=== PATIENT | female | born 1985 | race Caucasian/White ===

== ENCOUNTER 2017-12-26 14:42 | Emergency (ER) | payer SELFPAY ==
--- NOTE | 2017-12-26 15:50 | RAD REPORT ---
EXAM DESCRIPTION: CT - Head Brain Wo Cont - 12/26/2017 3:44 pm CLINICAL HISTORY: numbness right hand;Headache TIA/CVA COMPARISON: CT-STROKE BRAIN W/O CONTRAST dated 05/13/2014 TECHNIQUE: All CT scans are performed using dose optimization technique as appropriate and may inclu de automated exposure control or mA/KV adjustment according to patient size. FINDINGS: No intracranial hemorrhage, hydrocephalus or extra-axial fluid collection.No areas of brai n edema or evidence of midline shift. The paranasal sinuses and mastoids are clear. The calvarium is intact. IMPRESSION: No acute intracranial abnormality.
[2017-12-26 15:54] LABS: Absolute Lymphocytes (CBC) 1.4 K/uL (0.7-4.9); Absolute Monocytes 0.5 K/uL (0.1-1.3); Absolute Neutrophil 3.1 K/uL (1.8-8.0); Basophils % 0.8 % (0-1.3); Eosinophils % 0.8 % (0-4.4); Hematocrit 38.3 % (36.0-45.0); Lymphocytes % 27.6 % (15.3-44.8); MCH 30.1 pg (27.0-35.0); MCV 87.6 fL (80-100); MPV 8.3 fL (7.6-11.3); Monocytes % 10.6 % (3.3-12.3); RBC Red Blood Cell Count 4.37 M/uL (3.86-4.86)
[2017-12-26 15:58] LABS: Protime INR 1.01
[2017-12-26 16:01] LABS: Urine Blood 1+ (NEG); Urine Glucose NEGATIVE (NEG); Urine Protein NEGATIVE (NEG)
[2017-12-26] MEDS ORDERED: ONDANSETRON 4 MG/2 ML VIAL ONE (16:14)
[2017-12-26] MEDS ORDERED: METOCLOPRAMIDE 10 MG/2mL INJ ONE (16:14)
[2017-12-26] MEDS ORDERED: NA CHLORIDE 0.9% 1,000 ML ONE (16:14)
[2017-12-26] MEDS ORDERED: DEXAMETHASONE 4 MG/ML VIAL ONE (16:14)
[2017-12-26 16:15] LABS: ALT/SGPT 17 U/L (12-78); AST/SGOT 15 U/L (15-37); Alkaline Phosphatase 49 U/L (45-117); BUN Blood Urea Nitrogen 10 mg/dL (7-18); Bicarbonate 29 mmol/L (21-32); Bilirubin Direct < 0.1 mg/dL (0-0.2); Bilirubin Total 0.2 mg/dL (0.2-1.0); CKMB Creatine Kinase MB 2.5 ng/mL (0.3-3.6); Creatine Phosphokinase 143 U/L (26-192); Glucose Level 80 mg/dL (74-106); Magnesium 2.5 mg/dL (1.8-2.4); NT PRO-BNP 26 pg/mL (<125); Potassium 3.4 mmol/L (3.5-5.1); Protein, Total 7.7 g/dL (6.4-8.2); Sodium Level 141 mmol/L (136-145)
[2017-12-26] MEDS ORDERED: DIPHENHYDRAMINE 50 MG/ML VIAL ONE (16:19)
--- NOTE | 2017-12-26 16:26 | EKG ---
Test Date: 2017-12-26 Test Time: 15:34:15 Assurance Analyst: OSVALDO MEASUREMENT RESULTS: Intervals: Rate: 81 WY: 148 QRSD: 94 QT: 394 QTc: 457 Taylor: P: 28 WY: 148 QRS: 28 T: 17 INTERPRETIVE STATEMENTS: Normal sinus rhythm Normal ECG No previous ECG available for comparison Electronically Signed On 12-26-17 16:25:45 CDT by Henry Sands
--- NOTE | 2017-12-26 16:31 | RAD REPORT ---
EXAM DESCRIPTION: Rosa Elena Single View12/26/2017 4:22 pm CLINICAL HISTORY: Chest pain COMPARISON: none FINDINGS: The lungs appear clear of acute infiltrate. The heart is normal size IMPRESSION: No acute abnormalities displayed
[2017-12-26] MEDS ORDERED: POTASSIUM 25 MEQ EFFERV TAB ONE (16:36)
--- NOTE | 2017-12-26 17:47 | RAD REPORT ---
EXAM DESCRIPTION: MRI - Brain Wo Cont - 12/26/2017 5:30 pm CLINICAL HISTORY: numbness right hand;Headache CVA COMPARISON: Head Brain Wo Cont dated 12/26/2017 TECHNIQUE: Multi-sequence, multiplanar MR imaging of the brain was performed without contrast. FINDINGS: No intracranial hemorrhage, hydrocephalus or extra-axial fluid collections. No edema or sh ift of midline structures. No findings to suspect brain mass. DWI is negative for acute CVA. Thin curvilinear T1 hyperintense lesion surrounding the splenium of the corpus callosum is likely a s mall pericallosal lipoma. Mastoid air cells and paranasal sinuses are clear. IMPRESSION: Negative for acute CVA or other acute intracranial abnormality. Small benign pericallosal lipoma.
--- NOTE | 2017-12-26 18:11 | ER ---
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 A few minutes later she was having trouble speaking. States she was checked out by safety, and her automotive assembler were equal, but was having numbness and tingling. States she is still having some numbness and tingling in her fingertips, but her symptoms have otherwise resolved. Speech is clear, automotive assembler are equal bilaterally, patient ambulated back to triage with a steady gait. Patient states that in 2014 she had weakness on the entire right side of her body and difficulty speaking and was transferred to [place], had an MRI which was negative and was told that her symptoms at that time were likely due to complex migrane. Transition of care: patient was not received from another setting of care. Onset of symptoms was December 26, 2017 at 12:10. Risk Assessment: Do you want to hurt yourself or someone else? Patient reports no desire to harm self or others. Initial Sepsis Screen: Does the patient meet any 2 criteria? No. Patient's initial sepsis screen is negative. Does the patient have a suspected source of infection? No. Patient's initial sepsis screen is negative. Care prior to arrival: None. 15:00 Method Of Arrival: Ambulatory aj1 15:00 Acuity: MOSES 3 aj1 Triage Assessment: 15:07 General: Appears in no apparent distress. comfortable, Behavior is calm, cooperative, aj1 appropriate for age. Pain: Complains of pain in right moravian and left moravian Pain does not radiate. Pain currently is 6 out of 10 on a pain scale. Quality of pain is described as throbbing. Neuro: Level of Consciousness is awake, alert, obeys commands, Oriented to person, place, time, situation, Microbiology Instructor are equal bilaterally Moves all extremities. Full function Gait is steady, Speech is normal, Facial symmetry appears normal, Pupils are PERRLA, Reports headache weakness. Cardiovascular: Patient's skin is warm and dry. Respiratory: Airway is patent Respiratory effort is even, unlabored, Respiratory pattern is regular, symmetrical. 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 - Social history:: Smoking status: Patient uses tobacco products, smokes one-half pack cigarettes per day. - Ebola Screening: : Patient denies travel to an Ebola-affected area in the 21 days before illness onset. Screenin:44 Abuse screen: Denies threats or abuse. Denies injuries from another. Nutritional kr2 screening: No deficits noted. Tuberculosis screening: No symptoms or risk factors identified. Fall Risk None identified. Assessment: 15:41 General: Appears in no apparent distress. uncomfortable, well groomed, well developed, kr2 well nourished, Behavior is calm, cooperative, appropriate for age. Pain: Complains of pain in left moravian and right moravian Pain does not radiate. Pain currently is 6 out of 10 on a pain scale. Quality of pain is described as aching, Is continuous, Alleviated by nothing. Aggravated by increased activity. Neuro: Level of Consciousness is awake, alert, obeys commands, Oriented to person, place, time, situation, Appropriate for age Microbiology Instructor are equal bilaterally Moves all extremities. Gait is steady, Speech is normal, Facial symmetry appears normal, Pupils are PERRLA, Numbness in right arm Reports numbness in right arm since 1220. Cardiovascular: Heart tones S1 S2 Capillary refill < 3 seconds in bilateral fingers Patient's skin is warm and dry. Pulses are all present. Respiratory: Airway is patent Respiratory effort is even, unlabored, Respiratory pattern is regular, symmetrical. GI: Abdomen is flat, non-distended, Patient currently denies nausea, vomiting. : Urine is clear. EENT: Oral mucosa is moist. Derm: Skin is intact, is healthy with good turgor, Skin is pink, warm \T\ dry. 17:06 Reassessment: Patient appears in no apparent distress at this time. Patient and/or kr2 family updated on plan of care and expected duration. Pain level reassessed. Patient is alert, oriented x 3, equal unlabored respirations, skin warm/dry/pink. Patient taken to MRI via wheelchair by generator technician Patient states symptoms have improved. 18:24 Reassessment: Patient appears in no apparent distress at this time. Patient and/or kr2 family updated on plan of care and expected duration. Pain level reassessed. Patient is alert, oriented x 3, equal unlabored respirations, skin warm/dry/pink. Patient denies pain at this time. Patient states feeling better. Vital Signs: 15:07 BP 147 / 93; Pulse 86; Resp 18; Temp 98.2; Pulse Ox 100% on R/A; Weight 73.48 kg (R); aj1 Height 5 ft. 4 in. (162.56 cm) (R); 17:08 BP 110 / 65; Pulse 67; Resp 15; Pulse Ox 100% on R/A; kr2 18:25 BP 109 / 73; Pulse 70; Resp 16; Pulse Ox 100% on R/A; kr2 15:07 Body Mass Index 27.81 (73.48 kg, 162.56 cm) aj1 ED Course: 14:48 Patient arrived in ED. sb2 15:06 Triage completed. aj1 15:07 Arm band placed on. aj1 15:17 Amauri Cummins PA is PHCP. cp 15:17 Diego Oseguera MD is Attending Physician. cp 15:29 Bri Lynch, SACHA is Primary Nurse. kr2 15:30 Urine collected: clean catch specimen, clear, melanie colored, Amount Voided: 90mL. jp3 15:35 Inserted saline lock: 20 gauge in left antecubital area, using aseptic technique. Blood kr2 collected. 15:44 CT Head Brain wo Cont In Process Unspecified. EDMS 15:44 Patient has correct armband on for positive identification. Bed in low position. Call kr2 light in reach. Side rails up X 1. Adult w/ patient. monitoring analyst on. Pulse ox on. NIBP on. Door closed. Warm blanket given. Head of bed elevated. 16:03 EKG done, by technical support intern. reviewed by Amauri KOTHARI. 3 16:21 X-ray completed. Portable x-ray completed in exam room. Patient tolerated procedure mh1 well. 16:23 XRAY Chest (1 view) In Process Unspecified. EDMS 17:10 Patient moved to MRI via wheelchair. em2 17:30 MRI - Brain Wo Cont In Process Unspecified. EDMS 17:41 MRI completed. Patient tolerated well. Patient moved back from MRI. em2 18:10 Kareem Barnhart MD is Referral Physician. cp 18:20 No provider procedures requiring assistance completed. IV discontinued, intact, kr2 bleeding controlled, No redness/swelling at site. Pressure dressing applied. Administered Medications: 16:20 Drug: NS 0.9% 1000 ml Route: IV; Rate: 1 bolus; Site: left antecubital; kr2 17:15 Follow up: Response: No adverse reaction; IV Status: Completed infusion kr2 16:21 Drug: Zofran 4 mg Route: IVP; Site: left antecubital; kr2 17:05 Follow up: Response: No adverse reaction kr2 16:22 Drug: Reglan 10 mg Route: IVP; Site: left antecubital; kr2 17:06 Follow up: Response: No adverse reaction; Pain is decreased kr2 16:22 Drug: Dexamethasone 10 mg Route: IVP; Site: left antecubital; kr2 17:06 Follow up: Response: No adverse reaction; Pain is decreased kr2 16:22 Drug: Benadryl 25 mg Route: IVP; Site: left antecubital; kr2 17:05 Follow up: Response: No adverse reaction; Pain is decreased kr2 16:50 Drug: Potassium Effervescent Tablet 25 mEq Route: PO; kr2 17:05 Follow up: Response: No adverse reaction kr2 Outcome: 18:11 Discharge ordered by MD. cp 18:25 Patient left the ED. kr2 18:26 Discharged to home ambulatory, with family. kr2 18:26 Condition: good 18:26 Discharge instructions given to patient, family, Instructed on discharge instructions, follow up and referral plans. medication usage, Demonstrated understanding of instructions, follow-up care, medications, Prescriptions given X 2. Signatures: Dispatcher [employer] EDMS Keisha Sandhu RN RN aj1 Vivienne Garcia 1 Domingo Arceo em2 Amauri Cummins PA PA cp Bri Lynch RN RN kr2 Amina Medellin sb2 Maria D Arceo sm3 Stan Pastor jp3 Corrections: (The following items were deleted from the chart) 17:08 17:06 Reassessment: Patient appears in no apparent distress at this time. Patient kr2 and/or family updated on plan of care and expected duration. Pain level reassessed. Patient is alert, oriented x 3, equal unlabored respirations, skin warm/dry/pink. Patient states symptoms have improved. kr2
--- NOTE | 2017-12-26 18:11 | EDPHYS ---
Physician Documentation [facility] Name: Veronica Hamilton Age: 32 yrs Sex: Female : 1985 Arrival Date: 12/26/2017 Time: 14:48 Bed 25 Private MD: ED Physician Diego Oseguera HPI: 12/26 15:43 This 32 yrs old Female presents to ER via Ambulatory with complaints of cp Numbness. 15:43 The patient's problem is reported as paresthesias, in right lower extremity. Onset: The cp symptoms/episode began/occurred today, at 12:10. Duration: The episode is continuous. Associated signs and symptoms: Pertinent positives: headache, episode of slurred speech. Severity of symptoms: in the emergency department the symptoms have improved moderately. Patient's baseline: Neuro: alert and fully oriented, Motor: no deficits, Ambulation: walks without assistance, Speech: normal. Patient reports she awoke this morning with headache typical of her migraines that continued throughout day. At approximately 1210 she had sudden onset right arm numbness and started slurring her words. Slurred speech lasted for several minutes and resolved, but she continues to have headache and right hand numbness. 15:43 Patient reports having episode of right side body weakness in 2014 and being cp transferred to [facility]. Patient reports she was diagnosed with complex migraine. 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 - Social history:: Smoking status: Patient uses tobacco products, smokes one-half pack cigarettes per day. - Ebola Screening: : Patient denies travel to an Ebola-affected area in the 21 days before illness onset. ROS: 15:46 Eyes: Negative for injury, pain, redness, and discharge. cp 15:46 Constitutional: Negative for body aches, chills, fever, poor PO intake. 15:46 ENT: Negative for drainage from ear(s), ear pain, sore throat, difficulty swallowing, difficulty handling secretions. 15:46 Neck: Negative for pain with movement, stiffness, bony tenderness. 15:46 Cardiovascular: Negative for chest pain, edema, palpitations. 15:46 Respiratory: Negative for cough, shortness of breath, wheezing. 15:46 Abdomen/GI: Negative for abdominal pain, nausea, vomiting, and diarrhea. 15:46 Back: Negative for pain at rest, pain with movement. 15:46 Skin: Negative for cellulitis, rash. 15:46 Neuro: Positive for headache, numbness, Negative for altered mental status, dizziness, visual changes, weakness. 15:46 All other systems are negative. Exam: 15:42 ECG was reviewed by the Attending Physician. cp 15:48 Constitutional: The patient appears in no acute distress, alert, awake, non-toxic, well cp developed, well nourished. 15:48 Head/Face: Normocephalic, atraumatic. Eyes: Pupils equal round and reactive to light, cp extra-ocular motions intact. Lids and lashes normal. Conjunctiva and sclera are non-icteric and not injected. Cornea within normal limits. Periorbital areas with no swelling, redness, or edema. ENT: Nares patent. No nasal discharge, no septal abnormalities noted. Tympanic membranes are normal and external auditory canals are clear. Oropharynx with no redness, swelling, or masses, exudates, or evidence of obstruction, uvula midline. Mucous membranes moist. Neck: Trachea midline, no thyromegaly or masses palpated, and no cervical lymphadenopathy. Supple, full range of motion without nuchal rigidity, or vertebral point tenderness. No Meningismus. Chest/axilla: Normal chest wall appearance and motion. Nontender with no deformity. No lesions are appreciated. 15:48 Cardiovascular: Rate: normal, Rhythm: regular, Pulses: Pulses are 2+ in right radial artery and left radial artery. Heart sounds: murmur, not appreciated, rub, not appreciated, gallop, not appreciated, Edema: is not appreciated, JVD: is not appreciated. 15:48 Respiratory: the patient does not display signs of respiratory distress, Respirations: normal, no use of accessory muscles, no retractions, no splinting, labored breathing, is not present, Breath sounds: are clear throughout, no decreased breath sounds, no stridor, no wheezing. 15:48 Abdomen/GI: Inspection: abdomen appears normal, Bowel sounds: active, all quadrants, Palpation: abdomen is soft and non-tender, in all quadrants, rebound tenderness, is not appreciated, voluntary guarding, is not appreciated, involuntary guarding, is not appreciated. 15:48 Back: pain, is absent, ROM is normal. 15:48 Musculoskeletal/extremity: the right hand decreased sensation. 15:48 Skin: cellulitis, is not appreciated, no rash present. 15:48 Neuro: Orientation: to person, place \T\ time. Mentation: lucid, able to follow commands, Cerebellar function: Romberg testing is negative, normal finger to nose testing, heel to starks testing is normal, Motor: moves all fours, strength is normal, Gait: is steady, at a normal pace, without difficulty. 16:07 Radiologist reports: no acute intracranial findings cp Vital Signs: 15:07 BP 147 / 93; Pulse 86; Resp 18; Temp 98.2; Pulse Ox 100% on R/A; Weight 73.48 kg (R); aj1 Height 5 ft. 4 in. (162.56 cm) (R); 17:08 BP 110 / 65; Pulse 67; Resp 15; Pulse Ox 100% on R/A; kr2 18:25 BP 109 / 73; Pulse 70; Resp 16; Pulse Ox 100% on R/A; kr2 15:07 Body Mass Index 27.81 (73.48 kg, 162.56 cm) aj1 MDM: 15:17 Patient medically screened. 15:30 Differential diagnosis: CVA, TIA, drug effects, migraine. 18:05 Data reviewed: vital signs, nurses notes, lab test result(s), EKG, radiologic studies, cp CT scan, MRI, plain films. 18:05 Response to treatment: the patient's symptoms have markedly improved after treatment, cp Patient reports pain and paresthesias improved. Will discharge to home for continued monitoring. 12/26 15:24 Order name: Basic Metabolic Panel; Complete Time: 16:16 cp 12/26 16:16 Interpretation: Normal except: K 3.4; GFR 84. 12/26 15:24 Order name: CBC with Diff; Complete Time: 16:03 cp 12/26 16:03 Interpretation: Normal except: MCV 87.6. cp 12/26 15:24 Order name: Ckmb; Complete Time: 16:16 cp 08/30 15:24 Order name: CPK; Complete Time: 16:16 cp 30 15:24 Order name: LFT's; Complete Time: 16:16 cp 30 16:16 Interpretation: Normal except: GLOB 3.7. cp 30 15:24 Order name: Magnesium; Complete Time: 16:16 cp 30 16:16 Interpretation: MG 2.5; Reviewed. cp 12/26 15:24 Order name: NT PRO-BNP; Complete Time: 16:16 cp 12/26 15:24 Order name: PT-INR; Complete Time: 16:03 cp 12/26 15:24 Order name: Ptt, Activated; Complete Time: 16:03 cp 12/26 15:24 Order name: Troponin (emerg Dept Use Only); Complete Time: 16:16 cp 12/26 16:16 Interpretation: TROPED < 0.02; Reviewed. 12/26 15:24 Order name: XRAY Chest (1 view); Complete Time: 17:58 12/26 15:24 Order name: CT Head Brain wo Cont; Complete Time: 16:03 cp 30 16:09 Interpretation: Report reviewed. 12/26 15:50 Order name: Urine Dipstick--Ancillary (enter results); Complete Time: 16:03 12/26 16:09 Interpretation: Normal except: UBLD 1+. 12/26 15:50 Order name: Urine --Ancillary (enter results); Complete Time: 16:03 12/26 15:24 Order name: Urine Test (obtain specimen); Complete Time: 15:40 12/26 15:24 Order name: EKG; Complete Time: 15:25 cp 12/26 15:24 Order name: Cardiac monitoring; Complete Time: 15:40 cp 30 15:24 Order name: EKG - Nurse/Tech; Complete Time: 15:40 30 15:24 Order name: IV Saline Lock; Complete Time: 15:40 12/26 15:24 Order name: Labs collected and sent; Complete Time: 15:40 cp 30 15:24 Order name: O2 Per Protocol; Complete Time: 15:40 cp 30 15:24 Order name: O2 Sat Monitoring; Complete Time: 15:40 cp 12/26 15:24 Order name: Urine Dipstick-Ancillary (obtain specimen); Complete Time: 15:40 cp 12/26 16:07 Order name: MRI - Brain Wo Cont; Complete Time: 17:58 cp 12/26 17:59 Interpretation: Report reviewed. cp EC:42 Rate is 81 beats/min. Rhythm is regular. WA interval is normal. QRS interval is normal. cp QT interval is normal. T waves are Inverted in lead III. Interpreted by me. Reviewed by me. Administered Medications: 16:20 Drug: NS 0.9% 1000 ml Route: IV; Rate: 1 bolus; Site: left antecubital; kr2 17:15 Follow up: Response: No adverse reaction; IV Status: Completed infusion kr2 16:21 Drug: Zofran 4 mg Route: IVP; Site: left antecubital; kr2 17:05 Follow up: Response: No adverse reaction kr2 16:22 Drug: Reglan 10 mg Route: IVP; Site: left antecubital; kr2 17:06 Follow up: Response: No adverse reaction; Pain is decreased kr2 16:22 Drug: Dexamethasone 10 mg Route: IVP; Site: left antecubital; kr2 17:06 Follow up: Response: No adverse reaction; Pain is decreased kr2 16:22 Drug: Benadryl 25 mg Route: IVP; Site: left antecubital; kr2 17:05 Follow up: Response: No adverse reaction; Pain is decreased kr2 16:50 Drug: Potassium Effervescent Tablet 25 mEq Route: PO; kr2 17:05 Follow up: Response: No adverse reaction kr2 Disposition: 18:33 Co-signature as Attending Physician, Diego Oseguera MD. rn Disposition: 12/26/17 18:11 Discharged to Home. Impression: Migraine, Paresthesia of skin - Right Hand. - Condition is Stable. - Discharge Instructions: Migraine Headache, Paresthesia, Potassium Content of Foods. - Prescriptions for Fiorinal 50- 325-40 mg Oral Capsule - take 1 capsule by ORAL route every 4 hours As needed - not to exceed 6 capsules per day; 20 capsule. Zofran 4 mg Oral Tablet - take 1 tablet by ORAL route every 12 hours As needed; 20 tablet. - Medication Reconciliation Form, Thank You Letter, Antibiotic Education, Prescription Opioid Use, Work release form form. - Follow up: Kareem Barnhart MD; When: 2 - 3 days; Reason: Recheck today's complaints. - Problem is new. - Symptoms have improved. Signatures: Dispatcher [employer] EDKeisha Fraser RN RN aj1 Diego Oseguera MD MD rn Page, Corey, PA PA cp Reaves, Karey, RN RN kr2 Corrections: (The following items were deleted from the chart) 18:25 18:11 12/26/2017 18:11 Discharged to Home. Impression: Migraine; Paresthesia of skin - kr2 Right Hand. Condition is Stable. Forms are Medication Reconciliation Form, Thank You Letter, Antibiotic Education, Prescription Opioid Use. Follow up: Kareem Barnhart; When: 2 - 3 days; Reason: Recheck today's complaints. Problem is new. Symptoms have improved. cp
[2017-12-26 18:33] VITALS: TEMP 98.2; O2SAT 100
[2017-12-26 18:35] VITALS: BP 109/73
== END 2017-12-26 18:25 | disposition home or self-care (01) ==
LOC: ER 14:42
DX: G43.909 Migraine, unspecified, not intractable, without status migrainosus (principal); F17.210 Nicotine dependence, cigarettes, uncomplicated
CPT/HCPCS: 36415; 70450; 70551; 71045; 80048; 80076; 81003; 81025; 82550; 82553; 83735; 83880; 84484; 85025; 85610; 85730; 93005; 96361; 96374; 96375; 99285; J2405; J2765; J7030

== ENCOUNTER 2018-04-03 07:12 | Emergency (ER) | payer OTHER, SELFPAY ==
--- NOTE | 2018-04-03 08:36 | EDPHYS ---
Physician Documentation [facility] Name: Veronica Hamilton Age: 32 yrs Sex: Female : 1985 Arrival Date: 04/03/2018 Time: 07:15 Bed 20 Private MD: None, None ED Physician Diego Oseguera HPI: 04/03 07:30 This 32 yrs old Female presents to ER via Unassigned with complaints of Flu kb Symptoms. 07:30 The patient or guardian reports cough, that is intermittent, described as moderate, kb with no sputum, flu symptoms, arthralgias, myalgias. Onset: The symptoms/episode began/occurred 3 day(s) ago. Severity of symptoms: At their worst the symptoms were mild, moderate, in the emergency department the symptoms are unchanged. Modifying factors: The symptoms are alleviated by nothing, the symptoms are aggravated by nothing. Associated signs and symptoms: Pertinent positives: earache, sore throat, Pertinent negatives: chest pain, diarrhea, fever, nausea, rhinorrhea, vomiting. The patient has not experienced similar symptoms in the past. The patient has not recently seen a physician. 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 - Social history:: Smoking status: Patient uses tobacco products, smokes one-half pack cigarettes per day. - Ebola Screening: : Patient negative for fever greater than or equal to 101.5 degrees Fahrenheit, and additional compatible Ebola Virus Disease symptoms. ROS: 07:29 Cardiovascular: Negative for chest pain, palpitations, and edema, Abdomen/GI: Negative kb for abdominal pain, nausea, vomiting, diarrhea, and constipation, Back: Negative for injury and pain, : Negative for injury, bleeding, discharge, and swelling, MS/Extremity: Negative for injury and deformity, Skin: Negative for injury, rash, and discoloration. 07:29 Constitutional: Positive for body aches, chills, fatigue, malaise, Negative for fever, poor PO intake, weight loss. 07:29 ENT: Positive for ear pain, sore throat. 07:29 Respiratory: Positive for cough, Negative for dyspnea on exertion, hemoptysis, orthopnea, pleurisy, shortness of breath, sputum production, wheezing. 07:29 Neuro: Positive for headache, Negative for altered mental status, dizziness, gait disturbance, hearing loss, loss of consciousness, numbness, seizure activity, speech changes, syncope, near syncope, tingling, tinnitus, tremor, visual changes, weakness. Exam: 07:29 Constitutional: This is a well developed, well nourished patient who is awake, alert, kb and in no acute distress. Head/Face: Normocephalic, atraumatic. ENT: Nares patent. No nasal discharge, no septal abnormalities noted. Tympanic membranes are normal and external auditory canals are clear. Oropharynx with no redness, swelling, or masses, exudates, or evidence of obstruction, uvula midline. Mucous membranes moist. Neck: Trachea midline, no thyromegaly or masses palpated, and no cervical lymphadenopathy. Supple, full range of motion without nuchal rigidity, or vertebral point tenderness. No Meningismus. Chest/axilla: Normal chest wall appearance and motion. Nontender with no deformity. No lesions are appreciated. Cardiovascular: Regular rate and rhythm with a normal S1 and S2. No gallops, murmurs, or rubs. Normal PMI, no JVD. No pulse deficits. Respiratory: Lungs have equal breath sounds bilaterally, clear to auscultation and percussion. No rales, rhonchi or wheezes noted. No increased work of breathing, no retractions or nasal flaring. Abdomen/GI: Soft, non-tender, with normal bowel sounds. No distension or tympany. No guarding or rebound. No evidence of tenderness throughout. Back: No spinal tenderness. No costovertebral tenderness. Full range of motion. Skin: Warm, dry with normal turgor. Normal color with no rashes, no lesions, and no evidence of cellulitis. MS/ Extremity: Pulses equal, no cyanosis. Neurovascular intact. Full, normal range of motion. Neuro: Awake and alert, GCS 15, oriented to person, place, time, and situation. Cranial nerves II-XII grossly intact. Motor strength 5/5 in all extremities. Sensory grossly intact. Cerebellar exam normal. Normal gait. Vital Signs: 07:18 BP 117 / 77; Pulse 104; Resp 16; Temp 99.8(O); Pulse Ox 99% on R/A; Weight 64.86 kg; rb1 Height 5 ft. 4 in. (162.56 cm); Pain 10/10; 08:18 BP 113 / 70; Pulse 92; Resp 17; Pulse Ox 100% on R/A; rb1 07:18 Body Mass Index 24.55 (64.86 kg, 162.56 cm) rb1 MDM: 07:18 Patient medically screened. kb 07:30 Data reviewed: vital signs, nurses notes. Data interpreted: Pulse oximetry: on room air kb is 99 %. Interpretation: normal. 08:34 Counseling: I had a detailed discussion with the patient and/or guardian regarding: the kb historical points, exam findings, and any diagnostic results supporting the discharge/admit diagnosis, lab results, the need for outpatient follow up, a family practitioner, to return to the emergency department if symptoms worsen or persist or if there are any questions or concerns that arise at home. 04/03 07:21 Order name: Flu kb 04/03 07:21 Order name: Strep; Complete Time: 08:34 kb 04/03 07:21 Order name: Influenza Screen (A ; Complete Time: 08:34 EDMS 04/03 08:32 Order name: Throat Culture EDMS Administered Medications: No medications were administered Disposition: 10:22 Co-signature as Attending Physician, Diego Oseguera MD. rn Disposition: 04/03/18 08:35 Discharged to Home. Impression: Influenza due to identified novel influenza A virus. - Condition is Stable. - Discharge Instructions: Influenza, Adult, [id number]. - Prescriptions for Tamiflu 75 mg Oral Capsule - take 1 capsule by ORAL route every 12 hours for 5 days; 10 capsule. - Medication Reconciliation Form, Thank You Letter, Antibiotic Education, Prescription Opioid Use, Work release form form. - Follow up: Emergency Department; When: As needed; Reason: Worsening of condition. Follow up: Private Physician; When: 2 - 3 days; Reason: Recheck today's complaints, Continuance of care, Re-evaluation by your physician. Signatures: Dispatcher [employer] EDMS Crystal Motley, ROTOR BLADE INSTALLER-C STEPHANIE-Diego Marcelo MD MD rn Barber, Rebecca RN RN rb1 Corrections: (The following items were deleted from the chart) 08:44 08:35 04/03/2018 08:35 Discharged to Home. Impression: Influenza due to identified rb1 novel influenza A virus. Condition is Stable. Forms are Medication Reconciliation Form, Thank You Letter, Antibiotic Education, Prescription Opioid Use. Follow up: Emergency Department; When: As needed; Reason: Worsening of condition. Follow up: Private Physician; When: 2 - 3 days; Reason: Recheck today's complaints, Continuance of care, Re-evaluation by your physician. kb
--- NOTE | 2018-04-03 08:36 | ER ---
Nurse's Notes [facility] Name: Veronica Hamilton Age: 32 yrs Sex: Female : 1985 Arrival Date: 04/03/2018 Time: 07:15 Bed 20 Private MD: None, None Diagnosis: Influenza due to identified novel influenza A virus Presentation: 04/03 07:18 Presenting complaint: Patient states: She has body aches, cough, headache and sore rb1 throat for two days. Transition of care: patient was not received from another setting of care. Onset of symptoms was April 01, 2018. Risk Assessment: Do you want to hurt yourself or someone else? Patient reports no desire to harm self or others. Initial Sepsis Screen: Does the patient meet any 2 criteria? No. Patient's initial sepsis screen is negative. Does the patient have a suspected source of infection? No. Patient's initial sepsis screen is negative. Care prior to arrival: None. 07:18 Method Of Arrival: Ambulatory rb1 07:18 Acuity: MOSES 3 rb1 Triage Assessment: 07:18 General: Appears uncomfortable, Behavior is calm, cooperative, Reports chills for 2-3 rb1 days, feeling ill for Denies fever. Pain: Complains of pain in generlized body aches and headache Pain currently is 10 out of 10 on a pain scale. Pain began 2-3 days ago. EENT: Reports pain when swallowing. Neuro: Level of Consciousness is awake, alert, obeys commands, Oriented to person, place, time, situation. Cardiovascular: Capillary refill < 3 seconds is brisk in bilateral fingers. Respiratory: Reports cough that is Airway is patent Respiratory effort is even, unlabored, Respiratory pattern is regular, symmetrical. GI: No signs and/or symptoms were reported involving the gastrointestinal system. : No signs and/or symptoms were reported regarding the genitourinary system. Derm: Skin is pink, warm \T\ dry. 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 - Social history:: Smoking status: Patient uses tobacco products, smokes one-half pack cigarettes per day. - Ebola Screening: : Patient negative for fever greater than or equal to 101.5 degrees Fahrenheit, and additional compatible Ebola Virus Disease symptoms. Screenin:18 Abuse screen: Denies threats or abuse. Nutritional screening: decreased appetite. rb1 Tuberculosis screening: No symptoms or risk factors identified. Fall Risk None identified. Assessment: 07:18 General: See triage assessment. rb1 08:18 Reassessment: Patient appears in no apparent distress at this time. No changes from rb1 previously documented assessment. Vital Signs: 07:18 BP 117 / 77; Pulse 104; Resp 16; Temp 99.8(O); Pulse Ox 99% on R/A; Weight 64.86 kg; rb1 Height 5 ft. 4 in. (162.56 cm); Pain 10/10; 08:18 BP 113 / 70; Pulse 92; Resp 17; Pulse Ox 100% on R/A; rb1 07:18 Body Mass Index 24.55 (64.86 kg, 162.56 cm) rb1 ED Course: 07:15 Patient arrived in ED. sb2 07:15 None, None is Private Physician. sb2 07:17 Crystal Motley FNP-C [facility]. kb 07:17 Diego Oseguera MD is Attending Physician. kb 07:18 Arm band placed on right wrist. rb1 07:18 Patient has correct armband on for positive identification. Bed in low position. Call rb1 light in reach. Side rails up X 1. Pulse ox on. NIBP on. sheet was given due to low grade temperature. 07:32 Xuan Stewart, RN is Primary Nurse. rb1 07:34 Triage completed. rb1 07:41 Flu Sent. rb1 08:44 No provider procedures requiring assistance completed. Patient did not have IV access rb1 during this emergency room visit. Administered Medications: No medications were administered Outcome: 08:35 Discharge ordered by . kb 08:44 Patient left the ED. rb1 08:44 Discharged to home ambulatory. rb1 08:44 Condition: stable 08:44 Discharge instructions given to patient, Instructed on discharge instructions, follow up and referral plans. medication usage, Demonstrated understanding of instructions, follow-up care, medications, Prescriptions given X 1. Signatures: Crystal Motley FNP-C WATER JET OPERATOR-Xuan Hough, RN RN rb1 Amina Medellin sb2 Corrections: (The following items were deleted from the chart) 07:35 07:18 Care prior to arrival: rb1 rb1
[2018-04-03 08:49] VITALS: TEMP 99.8
[2018-04-03 08:50] VITALS: BP 113/70; O2SAT 100
== END 2018-04-03 08:44 | disposition home or self-care (01) ==
LOC: ER 07:12
DX: J10.1 Influenza due to other identified influenza virus with other respiratory manifestations (principal); F17.210 Nicotine dependence, cigarettes, uncomplicated
CPT/HCPCS: 87070; 87081; 87804; 99283